=== PATIENT | female | born 2000 | race Caucasian/White ===

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

== ENCOUNTER 2019-01-18 14:08 | Emergency (ER) | payer OTHER ==
[~2019-01-18] VITALS: Ht 152.4 cm; Wt 47.6 kg
[2019-01-18 14:17] VITALS: BP_SYST 110
--- NOTE | 2019-01-18 14:55 | NUR ---
Patient to ER bed 4 to gown for evaluation. Side rails up. Report given to Sophie WONG.
--- NOTE | 2019-01-18 15:25 | NUR ---
Patient presented to ER with neck ain radiating to left shoulder. Patient A&Ox4, skin pink, respirations equal bilat, pain 6/10. Denies N/V/D. Patient states pain started yesterday on scalp radiating to left neck and shoulder, patient states today pain in neck and shoulder. Patient denies having other health history, denies taking medication for pain.
--- NOTE | 2019-01-18 15:50 | NUR ---
ER Dr. Greenfield at bedside examining patient.
[2019-01-18] MEDS ORDERED: KETOROLAC TROMETHAMINE 60 MG/2 ML VIAL IM ONE (16:00)
[2019-01-18 16:26] VITALS: BP_SYST 110
--- NOTE | 2019-01-18 16:26 | NUR ---
Patient given written and verbal discharge instructions and verbalizes understanding. ER MD discussed with patient the results and treatment provided. Patient in stable condition. ID arm band removed. Rx of Motrin given. Patient educated on pain management and to follow up with PMD. Pain Scale 2/10. Opportunity for questions provided and answered. Medication side effect fact sheet provided.
== END 2019-01-18 16:26 | disposition home or self-care (01) ==
LOC: SED 14:08
DX: M54.2 Cervicalgia (principal); F17.210 Nicotine dependence, cigarettes, uncomplicated; J45.909 Unspecified asthma, uncomplicated
CPT/HCPCS: 81025; 99282; J1885